=== PATIENT | female | born 1990 | race Caucasian/White ===

== ENCOUNTER 2020-12-03 17:49 | Emergency (ER) | payer OTHER, SELFPAY ==
--- NOTE | ~2020-12-03 | XR_ITS ---
EXAMINATION: XR chest 1V portable DATE: 12/03/2020 19:12 INDICATION: Chest pain. Nausea. TECHNIQUE: A single frontal view of the chest was obtained. COMPARISON: None. FINDINGS: There is no pneumonia, pleural effusion, or pneumothorax. The heart size is normal. IMPRESSION: 1. No acute cardiopulmonary disease. Reviewed, dictated and finalized at location A.
--- NOTE | ~2020-12-03 | CT_ITS ---
EXAMINATION: CT abdomen pelvis w con DATE: 12/03/2020 20:39 INDICATION: Low abdominal pain. TECHNIQUE: Computed tomography (CT) of the abdomen and pelvis was performed with 100 mL Omnipaque 350 intravenous contrast. Automated exposure control and iterative reconstruction technique were employe d. The dose-length product was 1228.44 mGy-cm. COMPARISON: None. FINDINGS: The visualized portions of the lung bases are clear without pneumonia or pleural effusion. The heart size is normal. No pericardial effusion. The liver, gallbladder, spleen, pancreas, adrenal glands, and kidneys are normal. There are no dilated loops of bowel. The appendix is normal. There ar e no pathologically enlarged lymph nodes. There is no free intraperitoneal fluid. There is severe deg enerative disc disease at L5-S1. IMPRESSION: 1. No etiology for the patient's symptoms. Reviewed, dictated and finalized at location A.
[2020-12-03 18:27] VITALS: BP 114/73; PULSE 81; RESP 20; TEMP 36.7; O2SAT 99
--- NOTE | 2020-12-03 18:38 | ECG_ITS ---
Measurements Intervals [place] Rate: 66 P: 35 HI: 171 QRS: 20 QRSD: 85 T: 20 QT: 396 QTc: 418 Interpretive Statements SINUS RHYTHM VOLTAGE CRITERIA FOR LVH BORDERLINE ECG Electronically Signed On 12-03-2020 20:36:25 CDT by Mian Mann D.O.
[2020-12-03 18:44] LABS: Basophils Absolute Auto 0.1 K/mm3 (0.0-0.1); Basophils Percent Auto 0.6 % (0.2-1.2); Eosinophils Absolute Auto 0.4 K/mm3 (0-0.3); Eosinophils Percent Auto 3.7 % (0-4.4); Hematocrit 40.7 % (37.0-47.0); Immature Granulocyte Absolute 0.04 K/mm3 (0.00-0.031); Immature Granulocyte Percent A 0.4 % (0-0.5); Lymphocytes Absolute Auto 4.11 K/mm3 (0.9-3.2); Lymphocytes Percent Auto 39.4 % (18.3-44.2); Mean Corpuscular HGB Conc 31.9 g/dl (32-36); Mean Corpuscular Hemoglobin 29.1 pg (26-34); Mean Corpuscular Volume 91.1 fl (80-100); Mean Platelet Volume 9.2 fl (7.4-10.4); Monocytes Absolute Auto 0.8 K/mm3 (0.1-0.6); Monocytes Percent Auto 7.7 % (2.6-8.5); Neutrophils Percent Auto 48.2 % (45.5-73.1); Platelet Count Result 388 k/mm3 (150-375); Red Blood Count 4.47 M/mm3 (4.2-5.4); Red Cell Distribution Width 13.8 % (11.5-14.5); White Blood Count 10.4 K/mm3 (4.5-10.0)
[2020-12-03 18:49] LABS: Add Urine Microscopic? YES; Appearance Urine Cloudy (Clear); Bacteria Urine Trace /hpf; Bilirubin Urine Negative (Negative); Blood Urine Negative (Negative); Color Urine Yellow (Yellow); Glucose Urine UA Negative (Negative); Ketones Urine Negative (Negative); Leukocyte Esterase Ur Trace LEU/UL (Negative); Mucus Urine Rare /lpf; Nitrate Urine Negative (Negative); Protein Urine Negative (Negative); RBC Urine 0-2 /hpf (0-2); Specific Grav Ur 1.021 (1.001-1.035); Squamous Epithelial Cell Urine Many /hpf (Few); Urobilinogen Urine Negative mg/dL (<2.0); WBC Urine 0-3 /hpf
[2020-12-03 18:57] LABS: Potassium 4.2 mmol/L (3.4-5.0)
--- NOTE | 2020-12-03 19:07 | ED.GENADULT ---
HPI - General Adult General Chief complaint: Urogenital-Female Stated complaint: abd pain Time Seen by Provider: 12/03/20 18:45 Source: patient Mode of arrival: ambulatory Limitations: no limitations History of Present Illness HPI narrative: This is a 30 year old female who presents for evaluation of lower abdominal pain. She reports intermittent pelvic pain that has been present for 5-6 days. She is unable to describe pain. She has not taken anything for pain. She is unable to state anything makes pain better or worse. She reports history of nausea or vomiting but denies any today. She denies fever or chills. She reports she thought she was . Pain currently is 7/10. Patient also complaints of left chest pain under her breast. This pain is intermittent as well. It is nonradiating. Related Data Allergies Allergy/AdvReac Type Severity Reaction Status Date / Time No Known Allergies Allergy Mild Verified 01/17/08 16:58 Review of Systems Review of Systems: All systems reviewed & are unremarkable except as noted in HPI and below Constitutional: Constitutional: Denies chills and Denies fever(s) Cardiovascular: Cardiovascular: Reports chest pain and Denies radiating jaw, neck or arm pain Respiratory: Respiratory: Denies cough and Denies dyspnea Gastrointestinal: Gastrointestinal: Reports abdominal pain, Denies diarrhea, Reports nausea and Reports vomiting Genitourinary: Genitourinary: Denies dysuria, Reports pelvic pain and Reports vaginal discharge Musculoskeletal: Musculoskeletal: Reports back pain [facility] Past Medical History Medical History (Updated 12/03/20 @ 20:58 by Shireen Cruz MD) Bipolar disorder Surgical History Surgical History (Updated 12/03/20 @ 19:08 by Shireen rCuz MD) H/O tubal ligation Social History Social History (Updated 12/03/20 @ 19:08 by Shireen Cruz MD) Smoking status: Current every day smoker Alcohol intake: current Substance use: current Substance use type: marijuana Exam Const: General: no acute distress and alert Orientation/consciousness: patient oriented x3 Eyes: EOM: EOMs intact bilaterally Neck: Neck: no lymphadenopathy Resp: Effort & Inspection: normal respiratory effort Cardio: Rate: regular rate Rhythm: regular rhythm Heart sounds: no murmurs GI: GI Palp: Yes Soft to palpation, Yes Tenderness to palpation present (GI) (Bilateral lower abdominal tenderness R greater than left) and No Guarding due to palpation present (GI) Auscultation: normal bowel sounds : Speculum Exam - Cervix: normal appearance of the cervix and Cervical os closed Other: milky discharge Skin: General skin exam: normal color Rashes: no rashes Neuro: General: patient oriented x3, moves all extremities and CN's II-XI intact bilaterally Psych: Mental Status: mental status grossly normal Affect: normal affect Course Reevaluation(s) Reevaluation #1: Patient is resting in bed comfortably. I discussed CT and labs. She states she is not concerned about discharge enough to get antibiotics. She will follow up with vocational rehabilitation supervisor. Date: 12/03/20 Time: 20:56 Vital Signs Vital signs: Vital Signs Temperature 98.0 F 12/03/20 18:27 Pulse Rate 81 12/03/20 18:27 Respiratory Rate 20 12/03/20 18:27 Blood Pressure 114/73 12/03/20 18:27 Pulse Oximetry 99 12/03/20 18:27 Temperature 98.0 F 12/03/20 18:27 Pulse Rate 81 12/03/20 18:27 Respiratory Rate 20 12/03/20 18:27 Blood Pressure 114/73 12/03/20 18:27 Pulse Oximetry 99 12/03/20 18:27 Medical Decision Making Vital Signs Vital Signs: Vital Signs Temperature 98.0 F 12/03/20 18:27 Pulse Rate 81 12/03/20 18:27 Respiratory Rate 20 12/03/20 18:27 Blood Pressure 114/73 12/03/20 18:27 Pulse Oximetry 99 12/03/20 18:27 Temperature 98.0 F 12/03/20 18:27 Pulse Rate 81 12/03/20 18:27 Respiratory Rate 20 12/03/20 18:27 Blood Pres
[2020-12-03] MEDS: KETOROLAC 30 MG/ML VIAL (*BKC) IV PUSH (19:12)
[2020-12-03 19:15] LABS: Alanine Aminotransferase 13 U/L (4-35); Albumin Level 4.2 g/dL (3.5-5.1); Alkaline Phosphatase 62 U/L (38-126); Anion Gap 3 mmol/L (8-16); Aspartate Amino Transferase 24 U/L (14-36); Bilirubin,Total < 0.1 mg/dL (0.2-1.3); Blood Urea Nitrogen 16 mg/dL (7-17); Calcium 9.6 mg/dL (8.4-10.2); Carbon Dioxide 31 mmol/L (22-30); Chloride 106 mmol/L (98-107); Estimated CRCL calculation 109 ml/min; Estimated Glomerular Filt Rate > 60; Glucose 86 mg/dL (65-105); Lipase 116 U/L (23-300); Sodium 140 mmol/L (137-145)
[2020-12-03] MEDS: LACTATED RINGERS 1,000 ML 999 ML IV CONT (19:20)
[2020-12-03 19:52] LABS: Troponin I < 0.012 ng/mL (0.000-0.034)
[2020-12-03 19:57] LABS: INR 0.8; Partial Thromboplastin Time 29.1 SECONDS (22.3-36.8); Prothrombin Time 12.1 Seconds (11.1-14.7)
[2020-12-03 20:00] LABS: D Dimer 0.38 ug/mL (<0.48)
[2020-12-03 21:14] VITALS: BP 102/78; PULSE 78; RESP 18; O2SAT 99
== END 2020-12-03 21:15 | disposition home or self-care (01) ==
PROVIDERS: Emergency Provider General Practice; PCP Obstetrics & Gynecology
DX: R10.32 Left lower quadrant pain (principal); R10.31 Right lower quadrant pain; R07.89 Other chest pain; F17.200 Nicotine dependence, unspecified, uncomplicated; R94.31 Abnormal electrocardiogram [ECG] [EKG]
CPT/HCPCS: 36415; 71045; 74177; 80053; 81001; 81025; 83690; 84484; 85025; 85380; 85610; 85730; 87070; 87077; 87147; 87491; 87591; 87808; 93005; 96361; 96374; 99284; J1885; J7120; Q9967